=== PATIENT | female | born 1990 | race Caucasian/White ===

== ENCOUNTER 2017-11-30 09:00 | Outpatient (RCR) | payer OTHER ==
--- NOTE | 2017-10-27 11:55 | PT INITIAL EVALUATION ---
MEDICAL DIAGNOSIS: Left Knee Pain and Swelling, Possible Loose Body TREATMENT DIAGNOSIS: Left Knee Pain and Swelling, Possible Loose Body DATE OF ONSET: 10/21/17 SUBJECTIVE: Deb is a 27 year-old female presenting to physical therapy following a recent fall up icy stairs where she injured her L knee. Pt had high pain levels following, and received imaging where no apparent fracture was found , but a loose body possibly resulting from an avulsion fx was present. Pt to try PT initially to avoid surgical intervention. Pt reports that currently her knee is really quick to fatigue and following increased activity will be really sore and weak for a whole day following. Pain is currently rated as 3/10 with walking and 1/10 at rest sitting, however can reach up to a 7/10 with increased activity. Pt is currently managing pain with ice and elevation. REHAB PROBLEM LIST: Increased Pain Decreased ROM Decreased Strength Decreased Endurance Decreased Function Decreased ADL's Decreased Mobility Decreased Gait PREVIOUS MEDICAL HISTORY: See EMR OCCUPATION: [employer], Dietary Student at OBJECTIVE: Pt has moderate swelling throughout the entire L Knee specifically lateral to the inferior patellar pole as well as throughout the medial aspect of the knee along the joint line. ROM: Knee ROM: L 0-140 with pain in end ranges, R 2-0-150 Strength: Knee MMT not tested secondary to high pt pain with resistance. Palpation: Pt is ttp along the medial joint line and inferior pole of patella, and on the medial tibial plateau Sensation: Sensation intact to light touch Special Tests: All ligamentous testing (-), Appley's grind test (+), joint line palpation (+) on medial aspect Mobility: Patellar mobility has moderate restrictions in all motions with pain. Gait: Antalgic gait with decreased WB on L LE and decreased ankle and knee mobility. Other Objective Findings: Ultrasound diagnostic treatment (+) for pain likely correlating to bone or calcium deposit on inferior medial aspect of patella . ASSESSMENT: Pt shows signs and symptoms consistent with likely acute avulsion fracture of the medial tibial plateau with fragment retraction to the medial patellar pole. Pt has increased swelling and decreased mobility in the knee as outlined by the above listed impairments. Physical therapy is indicated to improve the above listed deficits to assist healing and return to prior level of function. Short Term Goals In 2 weeks pt will increase L knee ROM to equal that of the contralateral knee secondary to decreased swelling for improved functional mobility with ADL's and decreased pain. In 4 weeks pt will improve L LE strength to equal to that of the R LE for improved function with ADL's. In 6 weeks pt will be able to ambulate 5 laps around the track and not report increased knee pain with ADL's and work/school related ambulation for increased function. Patient's Goals Decrease knee pain and swelling with ambulation. PLAN: Patient to be seen for Manual Therapy/STM/MET Strengthening/condition Ice/Heat Range of Motion Ultrasound Stretching Iontophoresis Neuromuscular Re-ed Closed Chain Program Electrical Stim Gait Trg/Balance Trg Home Exercise Program Mech./Manual Traction Therapeutic Activities 2-3x/Week for 6 Weeks If you have any questions, comments, or concerns about this report or plan, please contact me at . Thank you, Kallie Mcmahon, PT, DPT, CLT MTDD
[~2017-11-30 09:00] MED LIST: CYCL10TA29 PO; DICY20TA70 PO; ELESTATPT OP; FLUT16SP20 NS; LOR05 PO; METH-543 PO; METH4TAB66 PO; MON10 PO; NORG1TAB74 PO; PANT40TA65 PO; PROAIRPT IH; VISCOUS XYLOCAINE PO; [UNRECOGNIZED DRUG - CODE] PO
--- NOTE | 2018-01-12 09:39 | PT PLAN OF CARE ---
Physician: Eren Louis MD Patient is being seen: 2-3x/Week Therapist: Kallie Mcmahon, PT, DPT, CLT Medical Diagnosis: Left Knee Pain and Swelling, Possible Loose Body Treatment Diagnosis: Left Knee Pain and Swelling, Possible Loose Body Date of Onset: 10/21/17 Date of Initial Evaluation: 10/26/17 Date patient was last seen: 12/02/17 Number of treatments: 7 Number of cancellations/No shows: 2 INTERVENTIONS: Manual Therapy/STM/MET Strengthening/condition Ice/Heat Range of Motion Ultrasound Stretching Iontophoresis Neuromuscular Re-ed Closed Chain Program Electrical Stim Gait Trg/Balance Trg Home Exercise Program Mech./Manual Traction Therapeutic Activities GOALS: In 2 weeks pt will increase L knee ROM to equal that of the contralateral knee secondary to decreased swelling for improved functional mobility with ADL's and decreased pain. MET In 4 weeks pt will improve L LE strength to equal to that of the R LE for improved function with ADL's. In Progress In 6 weeks pt will be able to ambulate 5 laps around the track and not report increased knee pain with ADL's and work/school related ambulation for increased function. MET PATIENT'S GOAL: Decrease knee pain and swelling with ambulation. Status of Patient's Goals: 2/3 MET, 1/3 In progress Patient Compliance: Fair Prognosis: Fair Reasons for discharge from therapy: Deb is to discharge from physical therapy at this time secondary to patient preference with completion of 2/3 functional goals. At the time of discharge pt was returning back to school and reported no knee pain with regular ADL's. Pt reported that she was compliant with HEP and was continuing to make improvements on strength goals independently. Upon discharge pt is to continue with HEP independently and seek services if any return in pain or inflammation develops. ROM: Knee ROM: Full B Strength: Pt able to perform all squatting activities and eccentric stepping going down stairs without problems. If you have any questions or concerns, please feel free to contact me at . Thank you, Kallie Mcmahon, PT, DPT, CLT [facility]
== END 2018-01-24 ==
LOC: PT 09:00
PROVIDERS: ATTEND Orthopaedic Surgery
DX: M25.562 Pain in left knee (principal); M25.462 Effusion, left knee
CPT/HCPCS: 97161

== ENCOUNTER → 2018-01-25 | Outpatient (CLI) | payer OTHER ==
[2018-01-25 09:19] LABS: LDL CHOLESTEROL 52 mg/dl
== END ==
LOC: LAB 08:25
PROVIDERS: ATTEND Nurse Practitioner Family
DX: Z00.00 Encounter for general adult medical examination without abnormal findings (principal); E55.9 Vitamin D deficiency, unspecified; M25.50 Pain in unspecified joint
CPT/HCPCS: 36415; 82040; 82247; 82306; 82310; 82374; 82435; 82465; 82565; 82947; 83718; 84075; 84132; 84155; 84295; 84443; 84450; 84460; 84478; 84520

== ENCOUNTER → 2018-03-30 | Outpatient (CLI) | payer OTHER ==
[2018-03-30 11:38] LABS: PLATELET COUNT, AUTOMATED 222 K/uL (150-450)
== END ==
LOC: LAB 11:21
PROVIDERS: ATTEND Nurse Practitioner Family
DX: M79.1 Myalgia (principal); R53.83 Other fatigue
CPT/HCPCS: 36415; 84443; 85025; 86644; 86645; 86663; 86664; 86665

== ENCOUNTER → 2018-05-10 | Outpatient (CLI) | payer OTHER ==
--- NOTE | 2018-05-10 19:55 | RADIOLOGY IMAGING REPORT ---
FACILITY: [facility] [place] PATIENT NAME: Deb Yeung : 1990 MR: [id number] V: [id number] EXAM DATE: ORDERING PHYSICIAN: BALJIT CHAPMAN TECHNOLOGIST: Location: [facility] [place] Patient: Deb Yeung : 1990 Visit/Account:[id number] Date of Sevice: 05/10/2018 EXAMINATION: Lumbar spine radiographs 3 views HISTORY: Chronic pain in shoulders and back. Radiates down arms and legs for 3 years. COMPARISON: None. FINDINGS: AP and lateral views of the lumbar spine and a lateral view of the lumbosacral junction are obtained. Bones: There are 5 nonrib-bearing lumbar type vertebral bodies. Vertebral body heights are maintaine d. Disc spaces: Negative. Posterior elements: Negative. Alignment: Normal. Hardware: None. Soft tissues: Negative. IMPRESSION: No evidence of acute fracture or significant degenerative changes of the lumbar spine. Report Dictated By: Toni Davidson MD at 05/10/2018 6:47 PM Report E-Signed By: Toni Davidson MD at 05/10/2018 7:50 PM WSN:[id number]
--- NOTE | 2018-05-10 20:04 | RADIOLOGY IMAGING REPORT ---
FACILITY: [facility] PATIENT NAME: Deb Yeung : 1990 MR: [id number] V: [id number] EXAM DATE: ORDERING PHYSICIAN: BALJIT CHAPMAN TECHNOLOGIST: Location: [facility] Patient: Deb Yeung : 1990 Visit/Account:[id number] Date of Sevice: 05/10/2018 EXAMINATION: SI joints radiographs 3 views HISTORY: Chronic back pain. COMPARISON: None. FINDINGS: 3 views of the SI joints are obtained. Bones: Negative. Joint spaces: Negative. Hardware: None. Alignment: Normal. Soft tissues: Negative. IMPRESSION: No bony abnormality of either SI joint. Report Dictated By: Toni Davidson MD at 05/10/2018 7:59 PM Report E-Signed By: Toni Davidson MD at 05/10/2018 8:01 PM WSN:[id number]
--- NOTE | 2018-05-10 20:07 | RADIOLOGY IMAGING REPORT ---
FACILITY: [facility] PATIENT NAME: Deb Yeung : 1990 MR: [id number] V: [id number] EXAM DATE: ORDERING PHYSICIAN: BALJIT CHAPMAN TECHNOLOGIST: Location: [facility] Patient: Deb Yeung : 1990 Visit/Account:[id number] Date of Sevice: 05/10/2018 EXAMINATION: Thoracic spine radiographs 2 views HISTORY: Chronic back pain. COMPARISON: None. FINDINGS: AP and lateral views of the thoracic spine are obtained. Bones: Negative. Disc spaces: Negative. Posterior elements: Negative. Alignment: Normal. Hardware: None. Soft tissues: Negative. IMPRESSION: Normal radiographic findings of the thoracic spine. Report Dictated By: Toni Davidson MD at 05/10/2018 8:03 PM Report E-Signed By: Toni Davidson MD at 05/10/2018 8:04 PM WSN:[id number]
--- NOTE | 2018-05-10 20:07 | RADIOLOGY IMAGING REPORT ---
FACILITY: [facility] - [place] PATIENT NAME: Deb Yeung : 1990 MR: [id number] V: [id number] EXAM DATE: ORDERING PHYSICIAN: BALJIT CHAPMAN TECHNOLOGIST: Location: [facility] [place] Patient: Deb Yeung : 1990 Visit/Account:[id number] Date of Sevice: 05/10/2018 EXAMINATION: Cervical spine radiographs 3 views HISTORY: Chronic pain in shoulders and back, radiates down arms and legs for 3 years. COMPARISON: None. FINDINGS: AP, open-mouth odontoid, and lateral views of the cervical spine are obtained. Bones: Cervical spine is adequately visualized through the cervicothoracic junction. No acute fractu re or dislocation. Disc spaces: Negative. Posterior elements: Negative. Alignment: Straightening of the cervical spine. No spondylolisthesis. Hardware: None. Soft tissues: Negative. Visualized lung apices: Negative. IMPRESSION: Straightening of the cervical spine which may be due to positioning or muscle spasm. Otherwise normal radiographic findings of the cervical spine. Report Dictated By: Toni Davidson MD at 05/10/2018 8:01 PM Report E-Signed By: Toni Davidson MD at 05/10/2018 8:03 PM WSN:[id number]
== END ==
LOC: RAD 16:08
PROVIDERS: ATTEND Physician Assistant Medical
DX: M54.5 Low back pain (principal); M54.2 Cervicalgia; M25.50 Pain in unspecified joint; R53.83 Other fatigue; M79.1 Myalgia
CPT/HCPCS: 36415; 72040; 72070; 72100; 72202; 82306; 82550; 82607; 83735; 83789; 85651; 86140; 86200; 86812

== ENCOUNTER → 2018-07-06 | Outpatient (CLI) | payer OTHER ==
--- NOTE | 2018-07-06 17:25 | RADIOLOGY IMAGING REPORT ---
FACILITY: [facility] - [place] PATIENT NAME: Deb Yeung : 1990 MR: [id number] V: [id number] EXAM DATE: ORDERING PHYSICIAN: BALJIT CHAPMAN TECHNOLOGIST: Location: [facility] Patient: Deb Yeung : 1990 Visit/Account:[id number] Date of Sevice: 07/06/2018 Examination: MRI sacroiliac joints without contrast HISTORY: Pelvic pain. Positive HLA-B27. Evaluate for sacroiliitis. TECHNIQUE: Multiplanar, multisequence MRI examination is performed of the pelvis and bilateral sacroi liac joints without contrast. FINDINGS: Plain films 05/10/2018 were reviewed. The sacroiliac joints are normal. No evidence of sacroiliac joint fluid, erosive change or subchondra l edema. No MR evidence of sacroiliitis. On the larger [id number] images, the marrow pattern of the proximal femora is normal. No evidence of proximal femur fracture, stress reaction or osteonecrosis. Marrow pattern of the bony pelvis and s acrum is normal. Visualized low lumbar spine also has a normal marrow pattern. The sacral neural foramina are widely patent. Piriformis musculature is normal. The sciatic nerves ap pear unremarkable. No free pelvic fluid. Scattered small ovarian cysts/follicles are seen. IMPRESSION: 1. Normal bilateral sacroiliac joints. Report Dictated By: Presley Sprague at 07/06/2018 5:12 PM Report E-Signed By: Presley Sprague at 07/06/2018 5:20 PM WSN:[id number]
== END ==
LOC: MRI 00:26
PROVIDERS: ATTEND Physician Assistant Medical
DX: N83.202 Unspecified ovarian cyst, left side (principal); N83.201 Unspecified ovarian cyst, right side
CPT/HCPCS: 72195

== ENCOUNTER → 2018-10-19 | Outpatient (CLI) | payer OTHER ==
--- NOTE | 2018-10-19 15:26 | RADIOLOGY IMAGING REPORT ---
FACILITY: [facility] PATIENT NAME: Deb Yeung : 1990 MR: [id number] V: [id number] EXAM DATE: ORDERING PHYSICIAN: BALJIT CHAPMAN TECHNOLOGIST: Location: [facility] Patient: Deb Yeung : 1990 Visit/Account:[id number] Date of Sevice: 10/19/2018 Exam type: ANKLE 3 VIEW MIN RIGHT History: Lateral ankle pain x3 months history of tendon problems, no known injury Comparison: None. Findings: Three views of the right ankle were submitted There is no evidence of acute fracture or dislocation involving the right ankle. Ankle mortise appea rs intact. No significant arthritic changes seen. IMPRESSION: 1. No osteoarticular abnormality the right ankle is seen. Given the clinical history of tendon prob lems an MR may be helpful Report Dictated By: Mireya Ramsey MD at 10/19/2018 3:21 PM Report E-Signed By: Mireya Ramsey MD at 10/19/2018 3:22 PM WSN:[email or web address]
== END ==
LOC: RAD 13:57
PROVIDERS: ATTEND Physician Assistant Medical
DX: M25.571 Pain in right ankle and joints of right foot (principal)

== ENCOUNTER → 2018-11-14 | Outpatient (CLI) | payer OTHER ==
--- NOTE | 2018-11-14 10:36 | RADIOLOGY IMAGING REPORT ---
FACILITY: [facility] - [place] PATIENT NAME: Deb Yeung : 1990 MR: [id number] V: [id number] EXAM DATE: ORDERING PHYSICIAN: BALJIT CHAPMAN TECHNOLOGIST: Location: [facility] [place] Patient: Deb Yeung : 1990 Visit/Account:[id number] Date of Sevice: 11/14/2018 ANKLE RIGHT W/O CONTRAST HISTORY: Ankle pain COMPARISON: X-ray 10/19/2018 TECHNIQUE: Multiplanar/multisequence was obtained through the right ankle without contrast. CONTRAST: None FINDINGS: Soft tissues: Normal Bones: The tibial talar joint is normal. No osteochondral lesion of the talar dome. The subtalar join ts are normal. Joint effusion: None significant Achilles tendon: Normal Plantar fascia: Normal Ligaments: The syndesmotic ligaments are intact. The anterior/posterior talar-fibular ligaments are i ntact. The deltoid ligament is intact. The calcaneal-fibular ligament is intact. Flexor tendons: Normal Peroneal tendons: Normal Extensor tendons: Normal Sinus tarsi: Normal Lisfranc ligament and midfoot: Normal Other findings: None significant IMPRESSION: 1. Unremarkable ankle MRI. No significant ligament or tendon abnormality identified. Report Dictated By: Aristeo Reagan MD at 11/14/2018 10:29 AM Report E-Signed By: Aristeo Reagan MD at 11/14/2018 10:32 AM WSN:[id number]
== END ==
LOC: MRI 06:55
PROVIDERS: ATTEND Physician Assistant Medical
DX: M25.571 Pain in right ankle and joints of right foot (principal)